=== PATIENT | female | born 1975 | race Two or more races ===

== ENCOUNTER 2024-03-22 08:00 | Day surgery (SDC) | payer MEDICAID ==
[2024-03-17 15:30] LABS: Urine Bacteria FEW /hpf (None Seen); Urine Blood Negative /uL (Negative); Urine Clarity Clear (Clear); Urine Color Light-Yellow (Yellow); Urine Protein, UAD Negative (Negative); Urine Specific Gravity 1.021 (1.001-1.035); Urine Urobilinogen Normal (Negative); Urine WBC 7 /hpf (0 - 5); Urine pH 6.5 (5.0-9.0)
[2024-03-17 15:37] LABS: Basophils # (auto) 0.1 10 ^3/uL (0-0.2); Basophils % (auto) 0.8 % (0.0-2.0); Eosinophils # (auto) 0.3 10 ^3/uL (0-0.8); Hematocrit 44.6 % (36.0-46.0); Lymphocytes % (auto) 28.6 % (10.0-50.0); Mean Corpuscular Hemoglobin 30.9 pg (28.0-32.0); Mean Corpuscular Hgb Conc. 33.6 g/dL (32.0-36.0); Monocytes # (auto) 0.5 10 ^3/uL (0-1.3); Monocytes % (auto) 6.7 % (0.0-12.0); Neutrophils # (auto) 4.1 10 ^3/uL (1.6-8.6); Neutrophils % (auto) 58.9 % (37.0-80.0); Nucleated Red Blood Cells % 0.2 %; Platelet Count (auto) 375 10^3/uL (140-450); Red Blood Cells 4.85 10^6/uL (4.0-5.20); Red Cell Distribution Width 13.1 % (11.8-14.3)
[2024-03-17 15:44] LABS: Alanine Aminotransferase 15 U/L (7-40); Albumin 4.7 g/dL (3.2-4.8); Alkaline Phosphatase 65 U/L (46-116); Anion Gap 7 (5-15); Aspartate Aminotransferase 10 U/L (13-40); BUN/Creatinine Ratio 17.6 (10.0-20.0); Blood Urea Nitrogen 12 mg/dL (9-23); Calcium 10.2 mg/dL (8.7-10.4); Carbon Dioxide 28 mmol/L (20-31); Chloride 105 mmol/L (98-107); Glucose 84 mg/dL (74-106); Potassium 4.1 mmol/L (3.5-5.1); Sodium 140 mmol/L (136-145)
[2024-03-17 15:45] LABS: Bilirubin, Total 0.4 mg/dL (0.2-1.0); Total Protein 7.7 g/dL (5.7-8.2)
[2024-03-17 16:28] LABS: INR 0.97 (0.9-1.15); Partial Thromboplastin Time 22.8 SEC (24.5-34.5); Prothrombin Time 10.3 sec (9.3-11.8)
[~2024-03-22] VITALS: Ht 157.5 cm; Wt 53.1 kg
[~2024-03-22 08:00] MED LIST: AMLO1TAB21 PO; ATEN-60 PO; ENAL1TAB48 PO; LEVO25TA6 PO
[2024-03-22] MEDS ORDERED: ceFAZolin 2 GM/D5W100ml 100 ML IV ONE (08:28)
[2024-03-22] MEDS ORDERED: LIDOCAINE W/ EPINEPHRINE 1% 20ML VIAL ONE (08:55)
[2024-03-22] MEDS ORDERED: HYDROmorphone HCL 2 MG/ML VL/or syr ONE (08:59)
[2024-03-22] MEDS ORDERED: fentaNYL CITRATE 100 MCG/2 ML VL ONE (08:59)
[2024-03-22] MEDS ORDERED: MIDAZOLAM HCL 2MG/2ML 2ml VIAL (1mg/ml) ONE (08:59)
[2024-03-22] MEDS ORDERED: LIDOCAINE 2% (LOCAL ANESTH.) PF 5ml SDV ONE (09:00)
[2024-03-22] MEDS ORDERED: ePHEDrine SULFATE 50 MG/ML AMP ONE (09:00)
[2024-03-22] MEDS ORDERED: ONDANSETRON HCL 4 MG/2 ML VIAL ONE (09:00)
[2024-03-22] MEDS ORDERED: PROPOFOL 10 MG/ML 20 ML IV ONE (09:00)
[2024-03-22] MEDS ORDERED: DexAMETHasone SOD PHOS 10MG/1ML VIAL INJ ONE (09:00)
[2024-03-22] MEDS ORDERED: KETOROLAC TROMETH 30 MG/ML 1ML VIAL ONE (09:00)
[2024-03-22] MEDS ORDERED: GLYCOPYRROLATE 0.2 MG/ML 1ML VIAL ONE (09:00)
[2024-03-22] MEDS: BUPIVACAINE 0.25% INJ 50ML VIAL IJ ONE (09:39)
[2024-03-22 09:52] VITALS: PULSE 16; RESP 14; TEMP 97.1; O2SAT 100
[2024-03-22] MEDS ORDERED: ONDANSETRON HCL 4 MG/2 ML VIAL IV ONE (10:00)
[2024-03-22] MEDS ORDERED: HYDROmorphone HCL 2 MG/ML VL/or syr IV PRN (10:00)
[2024-03-22 10:35] VITALS: BP 121/74; PULSE 87; RESP 14; O2SAT 97
== END 2024-03-22 11:15 | disposition home or self-care (01) ==
LOC: SUR 08:00
PROVIDERS: ATTEND Surgery
DX: R22.31 Localized swelling, mass and lump, right upper limb (principal); C79.2 Secondary malignant neoplasm of skin; I10 Essential (primary) hypertension; E03.9 Hypothyroidism, unspecified; F17.210 Nicotine dependence, cigarettes, uncomplicated; Z90.49 Acquired absence of other specified parts of digestive tract; Z98.890 Other specified postprocedural states; Z79.890 Hormone replacement therapy
CPT/HCPCS: 11606; 36415; 80053; 81001; 84702; 85025; 85610; 85730; 88305; 88342; J1100; J1171; J1885; J2003; J2250; J2405; J2704; J3010; J3490